=== PATIENT | female | born 2000 | race Caucasian/White ===

== ENCOUNTER 2020-12-22 02:39 | Emergency (ER) | payer MEDICAID ==
[~2020-12-22] VITALS: Ht 165.1 cm; Wt 125.0 kg
[2020-12-22] MEDS ORDERED: KETOROLAC 60MG/2ML VIAL IM ONE (03:00)
[2020-12-22 03:06] VITALS: BP 146/80
[2020-12-22] MEDS ORDERED: LIDO700A30 TP (04:21)
[2020-12-22] MEDS ORDERED: IBUP-2029 MT (04:21)
== END 2020-12-22 05:18 | disposition home or self-care (01) ==
LOC: ER 02:39
DX: M54.9 Dorsalgia, unspecified (principal); M25.511 Pain in right shoulder; V49.49XA Driver injured in collision with other motor vehicles in traffic accident, initial encounter; Y93.89 Activity, other specified; Y92.89 Other specified places as the place of occurrence of the external cause; Y99.8 Other external cause status
CPT/HCPCS: 71045; 72070; 81025; 93005; 96372; 99284; J1885

== ENCOUNTER 2023-05-03 14:47 | Emergency (ER) | payer MEDICAID, OTHER ==
[~2023-05-03] VITALS: Ht 165.1 cm; Wt 100.0 kg
[~2023-05-03 14:47] MED LIST: IBUP-2029 MT; LIDO700A30 TP
[2023-05-03 15:10] VITALS: O2SAT 100
[2023-05-03] MEDS ORDERED: KETOROLAC 30MG/ML VIAL IM ONE (15:45)
[2023-05-03 16:12] LABS: CLARITY URINE TURBID (CLEAR); COLOR URINE YELLOW (YELLOW); GLUCOSE URINE NEGATIVE (NEGATIVE); KETONES URINE NEGATIVE (NEGATIVE); LEUKOCYTE ESTERASE URINE NEGATIVE (NEGATIVE); NITRITE URINE NEGATIVE (NEGATIVE); OCCULT BLOOD URINE NEGATIVE (NEGATIVE); PH URINE 7.5 (4.5-8.0); PROTEIN URINE TRACE (NEGATIVE); SPECIFIC GRAVITY URINE 1.028 (1.005-1.030)
[2023-05-03 16:15] LABS: YEAST URINE NONE SEEN
[2023-05-03] MEDS ORDERED: METRONIDAZOLE 500MG TABLET PO NR (16:30)
[2023-05-03] MEDS ORDERED: CEFTRIAXONE SODIUM 500 MG/VIAL IM NR (16:30)
[2023-05-03] MEDS ORDERED: DOXYCYCLINE HYCLATE 100MG CAPSULE PO NR (16:30)
[2023-05-03] MEDS ORDERED: ONDANSETRON 4MG ODT PO NR (16:30)
[2023-05-03 16:33] LABS: BACTERIA URINE 4+; SQUAMOUS EPITHELIAL CELL URINE 2+ /lpf (RARE/1+)
[2023-05-03 16:34] LABS: AMORPHOUS SEDIMENT URINE 1+ /lpf; RBC URINE 0-2 /hpf (0-2); WBC URINE 0-2 /hpf (0-2)
[2023-05-03] MEDS ORDERED: DOXY100C5 MT (16:38)
[2023-05-03] MEDS ORDERED: METR-167 MT (16:38)
[2023-05-03 17:07] VITALS: BP 135/84; PULSE 76; RESP 18; TEMP 98.2
[2023-05-06 04:07] LABS: CHLAMYDIA TRACHOMATIS NAA Negative (Negative); NEISSERIA GONORRHOEAE NAA Negative (Negative)
== END 2023-05-03 17:08 | disposition home or self-care (01) ==
LOC: ER 14:47
DX: N73.9 Female pelvic inflammatory disease, unspecified (principal)
CPT/HCPCS: 87491; 87591; 81003; 81025; 96372; 99284; Q0162; J0696; J1885; Z7610 ×3